=== PATIENT | male | born 1975 | race Caucasian/White ===

== ENCOUNTER 2017-10-27 14:26 | Inpatient (IN) | payer MEDICAID, OTHER ==
[2017-10-27] MEDS: NICARDipine HCL 30 MG CAPSULE PO ×2 (16:21→17:30)
[2017-10-27] MEDS: hydrALAzine 20 MG INJ IV (16:21)
[2017-10-27 17:31] LABS: ANION GAP 21 (8-16); BLOOD UREA NITROGEN 25 mg/dl (7-20); CALCIUM 9.9 mg/dl (8.4-10.2); CARBON DIOXIDE 27 mmol/L (21-31); CHLORIDE 104 mmol/L (97-110); CREATININE 2.24 mg/dl (0.61-1.24); GLUCOSE 72 mg/dl (70-220); POTASSIUM 3.6 mmol/L (3.5-5.1); SODIUM 148 mmol/L (135-144)
[2017-10-27] MEDS ORDERED: ONDANSETRON 4 MG INJ IV (19:30)
[2017-10-27] MEDS ORDERED: ACETAMINOPHEN 325 MG TAB PO (19:30)
[2017-10-28] MEDS ORDERED: ACETAMINOPHEN 325 MG TAB PO (01:30)
[2017-10-28] MEDS ORDERED: ONDANSETRON 4 MG INJ IV (01:30)
[2017-10-28] MEDS: hydrALAzine 20 MG INJ IV ×2 (07:07→11:48)
[2017-10-28 07:58] LABS: ADD MAN DIFF? NO
[2017-10-28 08:05] LABS: BASOPHILS % 0.1 % (0.0-2.0); EOSINOPHILS # 0.1 10^3/ul (0.0-0.5); EOSINOPHILS % 1.3 % (0.0-7.0); HEMATOCRIT 45.3 % (42.0-52.0); HEMOGLOBIN 15.8 g/dl (14.0-18.0); LYMPHOCYTES # 2.1 10^3/ul (0.8-2.9); LYMPHOCYTES % 26.3 % (15.0-51.0); MEAN CORPUSCULAR HEMOGLOBIN 30.6 pg (29.0-33.0); MEAN CORPUSCULAR HGB CONC 34.9 g/dl (32.0-37.0); MEAN CORPUSCULAR VOLUME 87.8 fl (82.0-101.0); MEAN PLATELET VOLUME 10.8 fl (7.4-10.4); MONOCYTE # 0.6 10^3/ul (0.3-0.9); MONOCYTES % 6.9 % (0.0-11.0); NEUTROPHIL # 5.2 10^3/ul (1.6-7.5); NEUTROPHILS % 65.3 % (39.0-77.0); PLATELET COUNT 199 10^3/UL (140-415); RED BLOOD COUNT 5.16 10^6/ul (4.70-6.10); RED CELL DISTRIBUTION WIDTH 12.6 % (11.5-14.5)
[2017-10-28 08:05] LABS: WHITE BLOOD COUNT 7.9 10^3/ul (4.8-10.8)
[2017-10-28 08:30] LABS: ALANINE AMINOTRANSFERASE 31 IU/L (13-69); ALBUMIN 4.3 g/dl (3.3-4.9); ALKALINE PHOSPHATASE 89 IU/L (42-121); ANION GAP 19 (8-16); ASPARTATE AMINO TRANSFERASE 22 IU/L (15-46); BILIRUBIN,INDIRECT 0.5 mg/dl (0-1.1); BILIRUBIN,TOTAL 0.5 mg/dl (0.2-1.3); BLOOD UREA NITROGEN 26 mg/dl (7-20); CALCIUM 9.9 mg/dl (8.4-10.2); CARBON DIOXIDE 27 mmol/L (21-31); CHLORIDE 104 mmol/L (97-110); CHOL/HDL RATIO 6.4 RATIO; CHOLESTEROL 225 mg/dl (100-200); CREATININE 2.22 mg/dl (0.61-1.24); GLUCOSE 101 mg/dl (70-220); HDL CHOLESTEROL 35 mg/dl (27-67); LDL CHOLESTEROL,CALCULATED 149 mg/dl; MAGNESIUM 2.2 mg/dl (1.7-2.5); PHOSPHORUS 4.5 mg/dl (2.5-4.9); POTASSIUM 3.5 mmol/L (3.5-5.1); SODIUM 146 mmol/L (135-144); TOTAL PROTEIN 7.6 g/dl (6.1-8.1); TRIGLYCERIDES 204 mg/dl (0-149)
[2017-10-28 08:47] LABS: HEMOGLOBIN A1C 5.3 % (0-5.9)
[2017-10-28] MEDS: NIFEdipine (XL) 60 MG TAB PO (09:07)
[2017-10-28] MEDS: METOPROLOL 25 MG TAB PO ×2 (09:08→20:37)
[2017-10-29 06:35] LABS: ADD MAN DIFF? NO
[2017-10-29 06:40] LABS: WHITE BLOOD COUNT 7.9 10^3/ul (4.8-10.8)
[2017-10-29 06:40] LABS: BASOPHILS % 0.3 % (0.0-2.0); EOSINOPHILS # 0.2 10^3/ul (0.0-0.5); HEMATOCRIT 42.4 % (42.0-52.0); LYMPHOCYTES # 2.2 10^3/ul (0.8-2.9); LYMPHOCYTES % 28.5 % (15.0-51.0); MEAN CORPUSCULAR HEMOGLOBIN 31.4 pg (29.0-33.0); MEAN CORPUSCULAR HGB CONC 35.4 g/dl (32.0-37.0); MEAN CORPUSCULAR VOLUME 88.7 fl (82.0-101.0); MEAN PLATELET VOLUME 10.9 fl (7.4-10.4); MONOCYTE # 0.6 10^3/ul (0.3-0.9); MONOCYTES % 7.8 % (0.0-11.0); NEUTROPHIL # 4.8 10^3/ul (1.6-7.5); PLATELET COUNT 210 10^3/UL (140-415); RED BLOOD COUNT 4.78 10^6/ul (4.70-6.10); RED CELL DISTRIBUTION WIDTH 12.7 % (11.5-14.5)
[2017-10-29 06:58] LABS: PROTIME 13.3 Sec (11.9-14.9)
[2017-10-29 07:06] LABS: ALANINE AMINOTRANSFERASE 28 IU/L (13-69); ALBUMIN/GLOBULIN RATIO 1.21; ALKALINE PHOSPHATASE 77 IU/L (42-121); ANION GAP 18 (8-16); ASPARTATE AMINO TRANSFERASE 15 IU/L (15-46); BILIRUBIN,INDIRECT 0.4 mg/dl (0-1.1); BILIRUBIN,TOTAL 0.4 mg/dl (0.2-1.3); BLOOD UREA NITROGEN 37 mg/dl (7-20); CALCIUM 9.5 mg/dl (8.4-10.2); CARBON DIOXIDE 24 mmol/L (21-31); CHLORIDE 104 mmol/L (97-110); CREATININE 3.01 mg/dl (0.61-1.24); GLUCOSE 104 mg/dl (70-220); MAGNESIUM 2.2 mg/dl (1.7-2.5); PHOSPHORUS 4.9 mg/dl (2.5-4.9); POTASSIUM 3.6 mmol/L (3.5-5.1); SODIUM 142 mmol/L (135-144); TOTAL PROTEIN 7.3 g/dl (6.1-8.1)
[2017-10-29 07:53] LABS: HEMOGLOBIN A1C 5.3 % (0-5.9)
[2017-10-29] MEDS: METOPROLOL 25 MG TAB PO ×2 (08:10→20:37)
[2017-10-29] MEDS: NIFEdipine (XL) 60 MG TAB PO (08:11)
[2017-10-30 05:06] LABS: ADD MAN DIFF? NO
[2017-10-30 05:10] LABS: WHITE BLOOD COUNT 9.5 10^3/ul (4.8-10.8)
[2017-10-30 05:10] LABS: BASOPHILS % 0.3 % (0.0-2.0); EOSINOPHILS # 0.2 10^3/ul (0.0-0.5); EOSINOPHILS % 2.4 % (0.0-7.0); HEMATOCRIT 43.8 % (42.0-52.0); HEMOGLOBIN 15.3 g/dl (14.0-18.0); LYMPHOCYTES # 2.5 10^3/ul (0.8-2.9); LYMPHOCYTES % 26.5 % (15.0-51.0); MEAN CORPUSCULAR HEMOGLOBIN 30.9 pg (29.0-33.0); MEAN CORPUSCULAR HGB CONC 34.9 g/dl (32.0-37.0); MEAN CORPUSCULAR VOLUME 88.5 fl (82.0-101.0); MONOCYTE # 0.7 10^3/ul (0.3-0.9); MONOCYTES % 7.7 % (0.0-11.0); NEUTROPHILS % 62.8 % (39.0-77.0); PLATELET COUNT 217 10^3/UL (140-415); RED BLOOD COUNT 4.95 10^6/ul (4.70-6.10); RED CELL DISTRIBUTION WIDTH 12.6 % (11.5-14.5)
[2017-10-30 05:29] LABS: ALANINE AMINOTRANSFERASE 23 IU/L (13-69); ALBUMIN 4.2 g/dl (3.3-4.9); ALBUMIN/GLOBULIN RATIO 1.35; ALKALINE PHOSPHATASE 77 IU/L (42-121); ANION GAP 20 (8-16); ASPARTATE AMINO TRANSFERASE 15 IU/L (15-46); BILIRUBIN,INDIRECT 0.2 mg/dl (0-1.1); BILIRUBIN,TOTAL 0.2 mg/dl (0.2-1.3); BLOOD UREA NITROGEN 47 mg/dl (7-20); CALCIUM 9.2 mg/dl (8.4-10.2); CARBON DIOXIDE 22 mmol/L (21-31); CHLORIDE 108 mmol/L (97-110); GLUCOSE 104 mg/dl (70-220); POTASSIUM 3.9 mmol/L (3.5-5.1); SODIUM 146 mmol/L (135-144); TOTAL PROTEIN 7.3 g/dl (6.1-8.1)
[2017-10-30] MEDS: METOPROLOL 25 MG TAB PO (08:25)
[2017-10-30] MEDS: NIFEdipine (XL) 60 MG TAB PO (08:25)
== END 2017-10-30 14:45 | disposition home or self-care (01) | DRG 683 ==
LOC: TEL 19:27 → E/R 14:26 → MS1 10-28 00:04
DX: N17.9 Acute kidney failure, unspecified (principal); I16.1 Hypertensive emergency; E87.1 Hypo-osmolality and hyponatremia; I12.9 Hypertensive chronic kidney disease with stage 1 through stage 4 chronic kidney disease, or unspecified chronic kidney disease; N18.9 Chronic kidney disease, unspecified; R51 Headache; I16.0 Hypertensive urgency
CPT/HCPCS: 36415; 70450; 71045; 76775; 80048; 80053; 80061; 83036; 83735; 84100; 84443; 85025; 85610; 93005; 93306; 96374; 99285-25; G0378

== ENCOUNTER 2017-11-02 21:54 | Emergency (ER) | payer SELFPAY, MEDICAID | END 2017-11-03 02:03 | disposition left against medical advice (07) | LOC: FTE 21:54 | DX: Z53.21 Procedure and treatment not carried out due to patient leaving prior to being seen by health care provider (principal) ==

== ENCOUNTER 2018-11-25 21:47 | Emergency (ER) | payer SELFPAY ==
[2018-11-25] MEDS: KETOROLAC 60 MG INJ IM (23:39)
== END 2018-11-26 01:59 | disposition home or self-care (01) ==
LOC: FTE 11-26 01:59
DX: S89.91XA Unspecified injury of right lower leg, initial encounter (principal); W18.39XA Other fall on same level, initial encounter; Y92.9 Unspecified place or not applicable
CPT/HCPCS: 73562; 96372; 99284-25